=== PATIENT | female | born 1995 | race Native Hawaiian/Other Pacific Islander ===

== ENCOUNTER 2017-02-20 17:58 | Emergency (ER) | payer SELFPAY ==
[2017-02-20 18:47] VITALS: BP 125/85
[2017-02-20 19:34] LABS: Basophils % (Auto) 0.1 % (0.0-1.8); Eosinophils % (Auto) 0.2 % (0.0-4.3); Hematocrit 38.9 % (30.3-42.9); Hemoglobin 13.3 gm/dl (10.1-14.3); Mean Corpuscular HGB Conc 34 % (30-34); Mean Corpuscular Hemoglobin 33 pg (28-32); Mean Corpuscular Volume 95 fl (79-97); Platelet Count 305 K/mm3 (140-440); Red Blood Count 4.08 M/mm3 (3.65-5.03); White Blood Count 11.1 K/mm3 (4.5-11.0)
[2017-02-20 19:45] LABS: Amylase 278 units/L (27-131); Lipase 54 units/L (13-60)
[2017-02-20 19:49] LABS: Alanine Aminotransferase 22 units/L (7-56); Albumin 4.4 g/dL (3.9-5); Alkaline Phosphatase 64 units/L (35-129); Anion Gap 21 mmol/L; Blood Urea Nitrogen 9 mg/dL (7-17); Calcium 10.2 mg/dL (8.4-10.2); Carbon Dioxide 27 mmol/L (22-30); Glucose 95 mg/dL (65-100); Potassium 4.6 mmol/L (3.6-5.0); Sodium 138 mmol/L (137-145); Total Protein 8.6 g/dL (6.3-8.2)
[2017-02-20 20:05] LABS: Bilirubin,Direct < 0.2 mg/dL (0-0.2); Bilirubin,Indirect 0.4 mg/dL
[2017-02-20 21:49] LABS: Bacteria,Urine 4+ /HPF (Negative); Bilirubin,Urine NEG (Negative); Blood,Urine NEG (Negative); Ketones,Urine 80 mg/dL (Negative); Leukocyte Esterase,Urine SM (Negative); Mucus,Urine 3+ /HPF; Nitrite,Urine NEG (Negative)
--- NOTE | 2017-02-20 22:25 | Ultrasound Report ---
FINAL REPORT PROCEDURE: US OB \T\lt; = 14 WEEKS FETUS TECHNIQUE: Real-time transabdominal sonography of the uterus, placenta, amniotic fluid, adnexa, and fetus was performed with image documentation. Measurements were obtained to determine age/size. M-mode Doppler was used to document heartbeat. CPT 81306 HISTORY: w/ abd pain COMPARISON: No prior studies are available for comparison. FINDINGS: CRL: 2.6 mm, which corresponds to a gestational age of: 9 weeks weeks, 3 days. Embryonic Cardiac Activity: 143 Gestational Sac: Normal. Amniotic fluid: Normal. Cervix: Normal. Right Ovary: It measures 2.9 x 1.6 x 2.5 centimeters with normal appearance Left Ovary: Measures 2.3 x 1.7 x 1.3 centimeters with normal appearance Estimated delivery date: 09/22/2017 Uterus and adnexa: Normal. IMPRESSION: Single live intrauterine gestation at approximately 9 weeks and 3 days. EDC by US 09/22/2017
--- NOTE | 2017-02-20 22:26 | Ultrasound Report ---
FINAL REPORT PROCEDURE: US OB TRANSVAGINAL TECHNIQUE: Real-time transvaginal sonography of the uterus, placenta, amniotic fluid, adnexa, and fetus was performed with image documentation. Measurements were obtained to determine age/size. M-mode Doppler was used to document heartbeat. CPT 25716 HISTORY: w/ abd pain COMPARISON: No prior studies are available for comparison. FINDINGS: CRL: 26mm, which corresponds to a gestational age of: 9weeks, 3 days. Yolk Sac: Normal. Embryonic Cardiac Activity: 181 Gestational Sac: Normal. Right Ovary: Normal. Left Ovary: Normal. Estimated delivery date: 09/22/2017 Comment: Complete anatomic survey at 18-20 weeks suggested. IMPRESSION: 1. Single living intrauterine gestation at approximately 9 weeks and 3 days 2. EDC by US 09/22/2017.
== END 2017-02-21 00:10 | disposition left against medical advice (07) ==
LOC: ED 17:58
DX: O26.891 Other specified pregnancy related conditions, first trimester (principal); E86.0 Dehydration; R11.0 Nausea; Z3A.09 9 weeks gestation of pregnancy; Z53.21 Procedure and treatment not carried out due to patient leaving prior to being seen by health care provider
CPT/HCPCS: 36415; 76801; 76817; 80048; 80074; 81001; 82150; 82805; 83690; 84702; 85025; 86850; 86900; 86901; 87076; 87086; 87186

== ENCOUNTER 2017-09-26 05:22 | Inpatient (IN) | payer MEDICAID ==
[2017-09-26] MEDS ORDERED: ePHEDrine SULFATE IV PRN (06:18)
[2017-09-26] MEDS ORDERED: MINERAL OIL PO PRN (06:18)
[2017-09-26] MEDS ORDERED: BRETHINE SUB-Q PRN (06:18)
[2017-09-26] MEDS ORDERED: XYLOCAINE 2% INFILTRATI ONE ×2 (06:18→06:55)
[2017-09-26] MEDS ORDERED: BRETHINE IVP PRN (06:18)
[2017-09-26] MEDS ORDERED: SUBLIMAZE IV PRN ×2 (06:18→07:22)
--- NOTE | 2017-09-26 06:54 | History and Physical Report ---
History of Present Illness Date of examination: 09/26/17 Chief complaint: Painful contractions History of present illness: 22 y/o at 40+6 wks with painful contractions, she is a [facility] patient. 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 denies: smoking, alcohol abuse, prescription drug abuse, IV drug use - Obstetrical History Expected Date of Delivery: 09/20/17 Actual Gestation: 40 Week(s) 6 Day(s) : 2 Para: 1 Medications and Allergies Allergies Allergy/AdvReac Type Severity Reaction Status Date / Time No Known Allergies Allergy Unverified 02/20/17 18:46 Active Meds: Active Medications Ephedrine Sulfate (Ephedrine Sulfate) 10 mg IV Q2M PRN PRN Reason: Hypotension Fentanyl (Sublimaze) 100 mcg IV Q2H PRN PRN Reason: Labor Pain Lactated Ringer's (Lactated Ringers) 1,000 mls @ 125 mls/hr IV DIRECT LEOPOLDO Oxytocin/Sodium Chloride (Pitocin/Ns 20 Unit/1000ml Drip) 20 units in 1,000 mls @ 125 mls/hr IV DIRECT LEOPOLDO Mineral Oil (Mineral Oil) 30 ml PO QHS PRN PRN Reason: Constipation Terbutaline Sulfate (Brethine) 0.25 mg SUB-Q ONCE PRN PRN Reason: Hyperstimulation/Hypertonicity Terbutaline Sulfate (Brethine) 0.25 mg IVP ONCE PRN PRN Reason: Hyperstimulation/Hypertonicity Review of Systems Constitutional: no fever, no chills, no weakness, no lethargy Cardiovascular: no chest pain, no orthopnea, no lightheadedness, no shortness of breath, no dyspnea on exertion, no high blood pressure Respiratory: no cough, no cough with sputum, no shortness of breath, no dyspnea on exertion Gastrointestinal: no abdominal pain, no nausea, no vomiting Genitourinary: contractions, no vaginal bleeding, no vaginal discharge, no leakage of fluid - Vital Signs Vital signs: Vital Signs Temp 99.0 F 09/26/17 05:46 Temp Pulse Resp BP Pulse Ox 99.0 F 109 H 118/75 98 09/26/17 05:46 09/26/17 06:48 09/26/17 06:48 09/26/17 06:27 - Physical Exam Cardiovascular: Regular rate, Normal S1, Normal S2 Lungs: Positive: Clear to auscultation Abdomen: Positive: normal appearance, soft. Negative: distention, tenderness, guarding, rigidity Genitourinary (Female): Positive: normal external genitalia Vulva: both: normal Uterus: Positive: enlarged (EFW ~ 3400) Adnexa: both: normal Extremities: Positive: normal - Obstetrical FHR: category 1 Cervical Dilatation: 4 station: -3 Results All other labs normal. Assessment and Plan A: 22 y/o at 40+6 wks in active labour -cat 1 tracing P: -Admit -Routine labs -Expectant mgt - Patient Problems (1) 40 weeks gestation of Current Visit: Yes Status: Acute (2) Active labor at term Current Visit: Yes Status: Acute
[2017-09-26] MEDS ORDERED: ZOFRAN IV PRN ×2 (06:55→08:43)
[2017-09-26] MEDS ORDERED: PHENERGAN PO PRN ×2 (06:55→08:43)
[2017-09-26] MEDS ORDERED: PITOCin/NS 30 UNIT/500ML 30 UNITS/500 ML BAG IV SCH ×2 (07:00)
[2017-09-26] MEDS ORDERED: LACTATED RINGERS 1,000 ML IV SCH ×2 (07:00)
[2017-09-26] MEDS: PITOCin/NS 20 UNIT/1000ML DRIP 20 UNITS/1,000 ML BAG IV SCH ×2 (08:21→10:38)
[2017-09-26] MEDS ORDERED: METHERGINE IM ONE (08:22)
--- NOTE | 2017-09-26 08:42 | Procedure Note ---
OB Delivery Note - Delivery Date of Delivery: 09/26/17 Surgeon: GIOVANI ABDALLA Estimated blood loss: 300cc - Vaginal Delivery presentation: vertex Delivery position: OA Intrapartum events: meconium, foul smelling fluid Delivery induction: none Delivery monitor: external FHT, external uterine Route of delivery: Delivery placenta: spontaneous Delivery cord: nuchal cord (Tight and cut on perineum), 3 umbilical vessels Delivery laceration: 2nd degree, vaginal side wall (Sulcus tear with bleeding) Delivery repair: vicryl Anesthesia: local - Infant A at 1 minute: 8 at 5 minutes: 9 Infant Gender: Female ( was 8:18, weight was 6 pounds 15 ounces or 3148 g)
[2017-09-26] MEDS ORDERED: METHERGINE IM PRN (08:43)
[2017-09-26] MEDS ORDERED: DULCOLAX PR PRN (08:43)
[2017-09-26] MEDS ORDERED: BENADRYL PO PRN (08:43)
[2017-09-26] MEDS ORDERED: MILK OF MAGNESIA PO PRN (08:43)
[2017-09-26] MEDS ORDERED: TYLENOL PO PRN (08:43)
[2017-09-26] MEDS ORDERED: TUCKS PAD TP PRN (08:43)
[2017-09-26] MEDS ORDERED: NORCO 5/325 PO PRN (08:43)
[2017-09-26] MEDS ORDERED: PHENERGAN PR PRN (08:43)
[2017-09-26] MEDS ORDERED: LANSINOH TP PRN (08:43)
[2017-09-26] MEDS ORDERED: SODIUM CHLORIDE FLUSH SYRINGE 10 ML IV NR (09:00)
[2017-09-26 09:45] LABS: Hematocrit 30.2 % (30.3-42.9); Hemoglobin 10.1 gm/dl (10.1-14.3); Mean Corpuscular HGB Conc 33 % (30-34); Mean Corpuscular Hemoglobin 32 pg (28-32); Mean Corpuscular Volume 97 fl (79-97); Platelet Count 207 K/mm3 (140-440); Red Blood Count 3.13 M/mm3 (3.65-5.03); Red Cell Distribution Width 14.8 % (13.2-15.2)
[2017-09-26] MEDS: PRENATAL VITAMIN PO SCH (10:33)
[2017-09-26] MEDS: MOTRIN PO SCH ×2 (12:27→17:55)
[2017-09-26 21:44] LABS: Hematocrit 24.6 % (30.3-42.9); Hemoglobin 8.1 gm/dl (10.1-14.3)
[2017-09-27] MEDS: MOTRIN PO SCH ×4 (01:09→18:15)
[2017-09-27] MEDS: SENOKOT S PO SCH ×3 (01:10→09:41)
[2017-09-27] MEDS: FEOSOL PO SCH ×2 (01:11→09:40)
[2017-09-27] MEDS: COLACE PO SCH ×2 (01:12→09:40)
[2017-09-27] MEDS ORDERED: M-M-R II VACCINE SUB-Q ONE (08:43)
[2017-09-27] MEDS: PRENATAL VITAMIN PO SCH (09:40)
--- NOTE | 2017-09-27 15:16 | Progress Note ---
Assessment and Plan A: Day 1, Stable Desires Depo-Provera for contraception P: Routine care Administer Depo-Provera prior to discharge Plan to discharge today Subjective - Subjective Date of service: 09/27/17 Principal diagnosis: Day 1 Patient reports: appetite normal, voiding normally, pain well controlled, ambulating normally : doing well, nursing well Objective - Vital Signs Latest vital signs: Vital Signs Temp Pulse Resp BP Pulse Ox 09/27/17 10:00 18 09/27/17 08:02 98.3 F 82 18 96/35 97 09/27/17 01:20 98.4 F 91 H 18 105/57 97 09/27/17 01:09 18 09/26/17 20:45 98.5 F 103 H 18 102/54 96 09/26/17 17:30 98.7 F 78 20 102/64 98 Intake and Output 09/26/17 09/27/17 09/27/17 23:59 07:59 15:59 Intake Total 240 360 120 Output Total 600 Balance -360 360 120 Intake: Oral 240 360 120 Output: Urine 600 Void 600 Other: Total, Intake Amount 240 120 120 Total, Output Amount 600 # Voids Void 1 1 - Exam Breasts: Present: normal Cardiovascular: Present: Regular rate Lungs: Present: Clear to auscultation Abdomen: Present: normal appearance, soft Vulva: both: normal Uterus: Present: normal, fundal height below umbilicus Extremities: Present: normal Deep Tendon Reflex Grade: Normal +2 - Labs Labs: Abnormal lab results 09/26/17 Range/Units 21:21 Hgb 8.1 L (10.1-14.3) gm/dl Hct 24.6 L (30.3-42.9) %
[2017-09-27] MEDS ORDERED: DEPO-PROVERA (CONTRACEPTION) IM ONE ×2 (15:19→23:00)
--- NOTE | 2017-09-27 15:23 | Discharge Summary ---
Providers - Providers Date of Admission: 09/26/17 06:52 Date of discharge: 09/27/17 Attending physician: ELIUD MASSEY MD Primary care physician: ELIUD MASSEY MD Hospitalization Reason for admission: active labor, IUP at term Delivery: Procedure details: see delivery note Episiotomy: none Laceration: vaginal side wall (sulcus), 2nd degree Other procedures: none complications: none Discharge diagnosis: IUP at term delivered baby: female Condition at discharge: Good Disposition: DC-01 TO HOME OR SELFCARE Plan - Discharge Medications Prescriptions: Ibuprofen [Motrin 600 MG tab] 600 mg PO Q8H PRN #30 tablet PRN Reason: Pain Multivitamin with Iron [Multivitamins with Iron] 1 each PO DAILY #30 tablet - Provider Discharge Summary Activity: routine, no sex for 6 weeks, no heavy lifting 4 weeks, no strenuous exercise Diet: routine Instructions: routine Additional instructions: [] Smoking cessation referral if applicable(refer to patient education folder for contact #) [] Refer to [facility] Call your doctor immediately for: * Fever > 100.5 * Heavy vaginal bleeding ( >1 pad per hour) * Severe persistent headache * Shortness of breath * Reddened, hot, painful area to leg or breast * Drainage or odor from incision. * Keep incision clean and dry at all times and follow doctor's instructions regarding bathing/showering - Follow up plan Follow up: NEYMAR HEBERT CNM [Advanced Practice Nurse] - 6 Weeks
[2017-09-28 00:16] VITALS: BP 116/67
== END 2017-09-27 23:55 | disposition home or self-care (01) | DRG 775 ==
LOC: TRG 05:22 → LD 06:52 → OB 11:57
PROVIDERS: ADMIT Obstetrics & Gynecology; ATTEND Obstetrics & Gynecology
PROC: 10E0XZZ Delivery of Products of Conception, External Approach (ICD-10-PCS; principal; 2017-09-26)
PROC: 0KQM0ZZ Repair Perineum Muscle, Open Approach (ICD-10-PCS; 2017-09-26)
PROC: 3E0234Z Introduction of Serum, Toxoid and Vaccine into Muscle, Percutaneous Approach (ICD-10-PCS; 2017-09-27)
DX: O77.0 Labor and delivery complicated by meconium in amniotic fluid (principal); O69.81X0 Labor and delivery complicated by cord around neck, without compression, not applicable or unspecified; Z37.0 Single live birth; Z3A.40 40 weeks gestation of pregnancy; Z79.899 Other long term (current) drug therapy; Z23 Encounter for immunization; O70.1 Second degree perineal laceration during delivery
CPT/HCPCS: 36415; 85014; 85018; 85027; 86592; 86850; 86900; 86901; A6250; J1050; J2210; J2590; J3010; J7120; Q0169

== ENCOUNTER 2022-03-18 15:06 | Inpatient (IN) | payer MEDICAID ==
[2022-03-18] MEDS ORDERED: MAGNESIUM SULFATE 4 GM/100 ML BAG IV NR (16:24)
--- NOTE | 2022-03-18 16:41 | History and Physical Report ---
History of Present Illness Date of examination: 03/18/22 Date of admission: 03/18/22 15:07 History of present illness: at 35.4 wks by LMP per pt report. care at [facility]. Pt states that she has a headache for the past 3days for which she has been taking tylenol med which was not effective. Pt admits to movement, denies LOF or vag bleed. Pt denies ctx. Pt desires no future fertility. labs with O positive, neg screen, rubella immune, VDRL non-reactive, HepBsAg neg, HIV negative, 1hrgtt wnl. Past History Past Medical History: no pertinent history Past Surgical History: no surgical history Social history: no significant social history - Obstetrical History Expected Date of Delivery: 04/18/22 Actual Gestation: 35 Week(s) 4 Day(s) : 3 Hx # Term Pregnancies: 2 Number of Living Children: 2 Medications and Allergies Allergies Allergy/AdvReac Type Severity Reaction Status Date / Time No Known Allergies Allergy Unverified 02/20/17 18:46 Home Medications Medication Instructions Recorded Confirmed Last Taken Type Ibuprofen [Motrin 600 MG tab] 600 mg PO Q8H PRN #30 tablet 09/26/17 Unknown Rx Multivitamin with Iron 1 each PO DAILY #30 tablet 09/26/17 Unknown Rx [Multivitamins with Iron] Active Meds: Active Medications Calcium Gluconate (Calcium Gluconate 1000 Mg/10 Ml Inj) 1,000 mg IV ONCE ONE Stop: 03/18/22 16:25 Hydralazine HCl (Hydralazine 20 Mg/1 Ml Inj) 5 mg IV Q30MIN PRN PRN Reason: Hypertension Lactated Ringer's (Lactated Ringers) 1,000 mls @ 125 mls/hr IV DIRECT LEOPOLDO Magnesium Sulfate (Magnesium Sulfate 4gm/100ml) 4 gm in 100 mls @ 300 mls/hr IV ONCE ONE Stop: 03/18/22 16:43 Magnesium Sulfate (Magnesium Sulfate 40gm/1000ml) 40 gm in 1,000 mls @ 50 mls/hr IV DIRECT LEOPOLDO Labetalol HCl (Labetalol 20 Mg/4 Ml Inj) 20 mg IV ONCE ONE Stop: 03/18/22 16:25 Review of Systems All systems: negative (headache) - Vital Signs Vital signs: Vital Signs Pulse BP 48 L 176/86 03/18/22 15:48 03/18/22 15:48 Temp Pulse Resp BP Pulse Ox 54 L 163/80 99 03/18/22 16:25 03/18/22 16:22 03/18/22 16:25 - Physical Exam Breasts: Positive: deferred Cardiovascular: Normal S1 Abdomen: Positive: soft Genitourinary (Female): Positive: normal external genitalia Vagina: Positive: normal moisture Uterus: Positive: enlarged (non-tender gravid) - Obstetrical FHR: category 1 Uterine Contraction Monitor Mode: External Uterine Contraction Pattern: Absent Results Result Diagrams: 03/18/22 18:20 All other labs normal. Assessment and Plan Gestational HTN, preeclampsia with severe feature of headache 1. Admit to labor and delivery, PIH work up with 24hr prot/creat clearance, IV labetalol/hydrallazine per protocol as needed; Mag sulfate for seizure prophylaxis 2. Betamethasone for late 3. Consult APA 4. U/S for Gest age, BPP, placental integrity, MINNIE 5. Tylenol prn headache Plan of care discussed with pt.
[2022-03-18] MEDS ORDERED: CARBOPROST TROMETHAMINE 250 MCG/1 ML INJ IM NR (16:44)
[2022-03-18] MEDS ORDERED: OXYTOCIN 10 UNIT/1 ML INJ IM NR (16:44)
[2022-03-18] MEDS ORDERED: LOPERAMIDE 2 MG CAP PO NR (16:44)
[2022-03-18] MEDS ORDERED: LIDOCAINE (2%) 20 MG/1 ML VIAL 20 ML MDV INFILTRATI NR (16:44)
[2022-03-18] MEDS ORDERED: miSOPROStol 200 MCG TAB PR NR (16:44)
[2022-03-18] MEDS ORDERED: hydrALAZINE 20 MG/1 ML INJ IV PRN (17:00)
[2022-03-18] MEDS ORDERED: CALCIUM GLUCONATE 1000 MG/10 ML INJ IV NR (17:00)
[2022-03-18] MEDS ORDERED: LACTATED RINGERS 1,000 ML IV SCH ×2 (17:30→18:00)
[2022-03-18] MEDS ORDERED: fentaNYL 100 MCG/2 ML INJ IV PRN (17:30)
[2022-03-18] MEDS ORDERED: ePHEDrine SULFATE 50 MG/1 ML INJ IV PRN (17:30)
[2022-03-18] MEDS ORDERED: BETAMET ACET/BETAMET NA PH 6 MG/ML INJ 5 ML MDV IM ONE (17:38)
[2022-03-18] MEDS ORDERED: BETAMET ACET/BETAMET NA PH 6 MG/ML INJ 5 ML MDV IM SCH (17:45)
[2022-03-18] MEDS ORDERED: OXYTOCIN DRIP 30 UNITS/500 ML BAG IV SCH (18:00)
[2022-03-18] MEDS ORDERED: TERBUTALINE 1 MG/1 ML INJ SUB-Q PRN (18:00)
[2022-03-18] MEDS ORDERED: NalbUPHINE 10 MG/1 ML INJ IV PRN (18:00)
[2022-03-18] MEDS ORDERED: ONDANSETRON 4 MG/2 ML INJ IV PRN (18:00)
[2022-03-18] MEDS ORDERED: PROMETHAZINE 25 MG TAB PO PRN (18:00)
[2022-03-18 19:08] LABS: Hematocrit 34.8 % (30.3-42.9); Hemoglobin 11.3 gm/dl (10.1-14.3); Mean Corpuscular HGB Conc 32 % (30-34); Mean Corpuscular Volume 98 fl (79-97); Platelet Count 214 K/mm3 (140-440); Red Blood Count 3.57 M/mm3 (3.65-5.03); Red Cell Distribution Width 14.6 % (13.2-15.2)
[2022-03-18 19:19] LABS: INR 0.92 (0.87-1.13); Partial Thromboplastin Time 29.1 Sec. (24.2-36.6)
[2022-03-18 19:22] LABS: Alanine Aminotransferase 39 units/L (7-56); Albumin 2.9 g/dL (3.9-5); BUN/Creatinine Ratio 19; Blood Urea Nitrogen 15 mg/dL (7-17); Calcium 8.8 mg/dL (8.4-10.2); Hemolysis Index 2; Uric Acid 6.9 mg/dL (3.5-7.6)
[2022-03-18 19:50] LABS: Bilirubin,Direct < 0.2 mg/dL (0-0.2)
[2022-03-18] MEDS: ACETAMINOPHEN 325 MG TAB PO PRN (19:57)
--- NOTE | 2022-03-18 20:00 | Ultrasound Report ---
ULTRASOUND BIOPHYSICAL PROFILE INDICATION: BPP/MINNIE. COMPARISON: None available. FINDINGS: breathing movement = 2 Gross body movement = 2 tone = 2 Qualitative amniotic fluid volume = 2 Total biophysical score = 03/10 Amniotic fluid index is 11.2 cm. Presentation is Cephalic. heart rate is 151 beats per minute. Biparietal diameter 8.6 cm, 34 weeks 4 days Head circumference 30.9 cm, 34 weeks 4 days Abdominal circumference 29.7 cm, 33 weeks 5 days Femur length 6.6 cm, 23 weeks 6 days Estimated weight is 2309 g. There is a grade 2 anterior placenta. IMPRESSION: biophysical profile = 03/10 Additional findings as above. Signer Name: Wade Cedeno MD Signed: 03/18/2022 7:55 PM Workstation Name: [id number]
[2022-03-18] MEDS ORDERED: MINERAL OIL 30 ML ORAL LIQD PO PRN (22:00)
[2022-03-19 00:24] LABS: Color,Urine Yellow (Yellow)
[2022-03-19 00:26] LABS: Bacteria,Urine 2+ /HPF (Negative); Mucus,Urine 3+ /HPF
[2022-03-19] MEDS ORDERED: PENICILLIN G POTASSIUM 5 MIL.UNITS in SODIUM CHLORIDE 0.9% 50 ML IV ONE (01:09)
--- NOTE | 2022-03-19 01:50 | Event Note ---
Date: 03/19/22 CC: HD #2 management of preeclampsia with severe features HPI: 26-year-old at 35-5/7 weeks gestation is admitted to the antepartum unit for management of preeclampsia with severe features. The patient has no history of prepregnancy hypertension. Today, blood pressures were >140/90 and she had a headache for the past 3 days. Headache improved after Tylenol today, but have returned 1 hour ago. The patient received IV hydralazine after blood pressures were >160/110 (at least 5 occasions) a few hours ago. Intravenous magnesium was also ordered for seizure prophylaxis. Blood pressure was >160/110 again a few minutes ago and labetalol 20 mg IV push was ordered per ACOG Hypert ension safety bundle. 24 urine protein collection is pending. UPCR is pending also as are laboratory informed me that the chemistry analyzer malfunction of the fishing tackle repairer is scheduled to arrive during the morning shift. However, spot urinalysis revealed 4+ protein. Clinically, I am highly suspicious for preeclampsia with severe features based on elevated blood pressures >160/110 on several occasions, headache that recurred after Tylenol, and 4+ protein on spot urinalysis. As such, induction of labor is medically indicated at this gestational age secondary to preeclampsia with severe features according to ACOG Committee Opinion 831. There is no vaginal bleeding. There is no leaking of fluid. There is good movement. There are occasional contractions. O: EFM= category 1 TOCO= occasional SVE= 1-2/60%/-3. Medium. Mid. Patient score is 5. Cook's catheter inserted transcervically, 80 mL NS inserted into cervical balloon, and placed to traction with 1 L bag of LR. LABS: Preeclampsia labs= reviewed UPCR= pending (laboratory informing that chemistry analyzer malfunction and fishing tackle repairer scheduled for the morning shift) UA= 4+ protein 24 hour urine protein collection= pending GBS culture= pending UCx= pending RADIOLOGY: OB Ultrasound Limited= SLIUP. Vertex. Anterior placenta. EFW= 2309 g (12th %- ile). MINNIE= 11.2 cm. BPP= 8/8 IMPRESSION: 1.) 35 weeks 2.) Preeclampsia with severe features PLAN: 1.) care is up-to-date at [facility]. 2.) Administer penicillin per protocol for intrapartum GBS prophylaxis per 2009 CDC MMWR guidelines. GBS cultures pending. 3.) In lieu of the preeclampsia with severe features, induction of labor is medically indicated at this gestational age. Cook's catheter inserted. Administer Cytotec 50 mcg p.o. every 4 hours. 4.) Continue IV labetalol if blood pressures >160/110 per ACOG Hypertension safety bundle. 5.) Magnesium in active labor. 6.) Maternal- medicine was already consulted.
[2022-03-19] MEDS ORDERED: miSOPROStol 25 MCG TAB PO SCH ×2 (02:00)
[2022-03-19] MEDS: ACETAMINOPHEN 325 MG TAB PO PRN (02:00)
[2022-03-19] MEDS ORDERED: hydrALAZINE 20 MG/1 ML INJ IV ONE (05:40)
[2022-03-19] MEDS ORDERED: PENICILLIN G POTASSIUM 2.5 MIL.UNITS in SODIUM CHLORIDE 0.9% 50 ML IV SCH (06:00)
[2022-03-19] MEDS ORDERED: SODIUM CHLORIDE 0.9% 1000 ML 1,000 ML VG SCH ×2 (07:30)
--- NOTE | 2022-03-19 07:35 | Event Note ---
Date: 03/19/22 CC: HD #2 management of preeclampsia with severe features HPI: 26-year-old at 35-5/7 weeks gestation is admitted to the antepartum unit for management of preeclampsia with severe features. The patient has no history of prepregnancy hypertension. Today, blood pressures were >140/90 and she had a headache for the past 3 days. Headache improved after Tylenol today, but have returned 1 hour ago. The patient received IV hydralazine after blood pressures were >160/110 (at least 5 occasions) a few hours ago. Intravenous magnesium was also ordered for seizure prophylaxis. Blood pressure was >160/110 again a few minutes ago and labetalol 20 mg IV push was ordered per ACOG Hypert ension safety bundle. 24 urine protein collection is pending. UPCR is pending also as are laboratory informed me that the chemistry analyzer malfunction of the machine veneer repairer is scheduled to arrive during the morning shift. However, spot urinalysis revealed 4+ protein. So far, labetalol IV 20 mg/40 mg/80 mg and hydralazine IV 10 mg/10 mg have been administered to keep blood pressure <160/110. Clinically, I am highly suspicious for preeclampsia with severe features based on elevated blood pressures >160/110 on several occasions, headache that recurred after Tylenol, and 4+ protein on spot urinalysis. As such, induction of labor is medically indicated at this gestational age secondary to preeclampsia with severe features according to ACOG Committee Opinion 831. There is no vaginal bleeding. There is no leaking of fluid. There is good movement. There are occasional contractions. O: EFM= category 2. Variable decelerations. TOCO= q 2-5 minutes SVE= 5/60%/-3. Soft. Mid. Hahn score is 8. Cook's catheter fell out. AROM'ed. Meconium noted. IUPC and FSE placed. Amnioinfusion ordered. LABS: Preeclampsia labs= reviewed UPCR= pending (laboratory informing that chemistry analyzer malfunction and machine veneer repairer scheduled for the morning shift) UA= 4+ protein 24 hour urine protein collection= pending GBS culture= pending UCx= pending RADIOLOGY: OB Ultrasound Limited= SLIUP. Vertex. Anterior placenta. EFW= 2309 g (12th %-ile). MINNIE= 11.2 cm. BPP= 8/8 IMPRESSION: 1.) 35 weeks 2.) Preeclampsia with severe features 3.) Meconium 4.) Variable decelerations PLAN: 1.) care is up-to-date at [facility]. 2.) Administering penicillin per protocol for intrapartum GBS prophylaxis per 2010 CDC MMWR guidelines. GBS cultures pending. 3.) In lieu of the preeclampsia with severe features, induction of labor is medically indicated at this gestational age. 4.) Cervix is not favorable. Start Pitocin per protocol. 5.) Continue IV labetalol if blood pressures >160/110 per ACOG Hypertension safety bundle. 6.) Magnesium in active labor. 7.) Maternal- medicine was already consulted. 8.) Amnioinfusion ordered. 9.) Epidural as needed.
[2022-03-19] MEDS ORDERED: MAGNESIUM SULFATE 4 GM/100 ML BAG IV ONE (08:00)
[2022-03-19 08:30] LABS: Creatinine,Urine 340.3 mg/dL (0.1-20.0)
[2022-03-19] MEDS: MAGNESIUM SULFATE 40GM/1000ML 40 GM/1,000 ML BAG IV SCH (08:50)
[2022-03-19] MEDS ORDERED: LIDOCAINE (2%) 20 MG/1 ML VIAL 20 ML MDV INFILTRATI ONE (09:26)
[2022-03-19] MEDS ORDERED: LIDOCAINE (2%) 20 MG/1 ML VIAL 50 ML MDV INFILTRATI NR (09:30)
[2022-03-19] MEDS ORDERED: miSOPROStol 200 MCG TAB ONE ×2 (09:47→09:51)
--- NOTE | 2022-03-19 10:23 | Procedure Note ---
OB Delivery Note - Delivery Date of Delivery: 03/19/22 Surgeon: MICHAEL VILLALBA Estimated blood loss: other (793cc by QBL however the nurse states amniotic fluid mixed in) - Vaginal Delivery presentation: vertex Delivery position: OP Intrapartum events: labor-<37 weeks, preeclampsia, decreased FHT variability, mult. late decelerations, mult.variable deceleratio, uterine atony Delivery induction: oxytocin Delivery monitor: external FHT, external uterine, internal uterine Route of delivery: Delivery placenta: spontaneous Delivery cord: 3 umbilical vessels Episiotomy: none Delivery laceration: 1st degree (to left periurethra), 2nd degree (to right perineum) Delivery repair: chromic Anesthesia: local Delivery comments: Pt checked less than 15mins and noted to be loose 6cm and 90% and -3 station and ballotable. Discussed alternative mode of delivery with non-reassuring FHR. FOB rushed to the desk after I left the room stating pt has urge to push. Pt re-evaluated and head was at +3 station. NICU notified and moody cath removed. SAVD of viable male infant in persistent O-P presentation and no nuc nile cord present. Sustained 2nd degree perineal laceration and same repaired with 2-0 chromic running locked suture and 1st degree to left periurethra and same repaired with interrupted 2-0 chromic suture x1. Lidocaine 2% used for pain relief. Placenta delivered complete with 3vessel cord and cervix visualized and no lacerations seen. Mag sulfate turned off during delivery. Bimanual exam done and uterine atony treated with pitocin and cytotec 800mcg per rectum. Will restart mag sulfate in 1hr with bleeding stable. APGARS 8/9; wt 2140g with meconium stained fluid. Mom and baby stable with FOB to bedside. - A at 1 minute: 8 at 5 minutes: 9 Gender: Male (wt 2140g; meconium stained fluid, slightly bloody also)
[2022-03-19] MEDS ORDERED: miSOPROStol 100 MCG TAB PR PRN (10:44)
[2022-03-19] MEDS ORDERED: BENZOCAINE/MENTHOL 20/0.5% TOP SPRAY 56 GM TP PRN (11:30)
[2022-03-19] MEDS ORDERED: diphenhydrAMINE 25 MG CAP PO PRN (11:30)
[2022-03-19] MEDS ORDERED: WITCH HAZEL/ GLYCERIN PAD TP PRN (12:00)
[2022-03-19] MEDS ORDERED: PROMETHAZINE 25 MG TAB PO PRN (12:00)
[2022-03-19] MEDS ORDERED: HYDROCORTISONE 25 MG RECTAL SUPP PR PRN (12:00)
[2022-03-19] MEDS ORDERED: PROMETHAZINE 25 MG RECT SUPP PR PRN (12:00)
[2022-03-19] MEDS ORDERED: miSOPROStol 200 MCG TAB PR NR ×2 (12:00)
[2022-03-19] MEDS ORDERED: LANOLIN/ZINC/DIMETHICONE (LANSINOH) 7 GM TP PRN (12:00)
[2022-03-19] MEDS ORDERED: IBUPROFEN 800 MG TAB PO SCH (12:00)
[2022-03-19] MEDS ORDERED: ONDANSETRON 4 MG/2 ML INJ IV PRN (12:00)
[2022-03-19] MEDS ORDERED: oxyCODONE /ACETAMINOPHEN 5-325MG TAB PO PRN (12:00)
[2022-03-19] MEDS ORDERED: MAGNESIUM HYDROXIDE (MOM) ORAL LIQD UDC PO PRN (22:00)
[2022-03-20] MEDS: MAGNESIUM SULFATE 40GM/1000ML 40 GM/1,000 ML BAG IV SCH (07:41)
[2022-03-20 09:12] LABS: Hematocrit 29.4 % (30.3-42.9); Hemoglobin 9.6 gm/dl (10.1-14.3); Mean Corpuscular HGB Conc 33 % (30-34); Mean Corpuscular Volume 98 fl (79-97); Platelet Count 217 K/mm3 (140-440); Red Blood Count 3.01 M/mm3 (3.65-5.03); Red Cell Distribution Width 15.1 % (13.2-15.2)
[2022-03-20] MEDS ORDERED: PRENATAL VIT27-FE FUMARATE-FOLIC ACID VIT TAB PO SCH (10:00)
--- NOTE | 2022-03-20 19:10 | Progress Note ---
Assessment and Plan S/p PPD #1 Preeclampsia Pt. stable Preeclampsia improved - BP - wnl Continue PP care Subjective Date of service: 03/20/22 Principal diagnosis: S/p , Pre-eclampsia Interval history: Pt. denies headache, blurry vision or epigastric pain. No SOB. Moderate lochia. Good pain control Objective - Constitutional Vitals: Vital Signs - 12hr 03/20/22 03/20/22 03/20/22 07:07 07:11 07:12 Temperature Pulse Rate 69 76 71 Respiratory Rate Blood Pressure Blood Pressure [Left] O2 Sat by Pulse 100 94 95 Oximetry O2 Sat by Pulse Oximetry [ Bilateral Throughout] 03/20/22 03/20/22 03/20/22 07:17 07:18 07:22 Temperature Pulse Rate 70 73 90 Respiratory Rate Blood Pressure Blood Pressure [Left] O2 Sat by Pulse 98 93 96 Oximetry O2 Sat by Pulse Oximetry [ Bilateral Throughout] 03/20/22 03/20/22 03/20/22 07:25 07:27 07:32 Temperature Pulse Rate 68 69 71 Respiratory Rate Blood Pressure Blood Pressure [Left] O2 Sat by Pulse 94 98 86 Oximetry O2 Sat by Pulse Oximetry [ Bilateral Throughout] 03/20/22 03/20/22 03/20/22 07:37 07:39 07:42 Temperature Pulse Rate 66 80 76 Respiratory Rate Blood Pressure Blood Pressure [Left] O2 Sat by Pulse 98 85 92 Oximetry O2 Sat by Pulse Oximetry [ Bilateral Throughout] 03/20/22 03/20/22 03/20/22 07:44 07:47 07:52 Temperature Pulse Rate 66 64 70 Respiratory Rate Blood Pressure 137/79 Blood Pressure [Left] O2 Sat by Pulse 99 100 Oximetry O2 Sat by Pulse Oximetry [ Bilateral Throughout] 03/20/22 03/20/22 03/20/22 07:57 08:00 08:02 Temperature Pulse Rate 75 71 Respiratory Rate Blood Pressure Blood Pressure [Left] O2 Sat by Pulse 99 98 Oximetry O2 Sat by Pulse 97 Oximetry [ Bilateral Throughout] 03/20/22 03/20/22 03/20/22 08:07 08:11 08:12 Temperature Pulse Rate 65 64 67 Respiratory Rate Blood Pressure Blood Pressure [Left] O2 Sat by Pulse 99 79 L 97 Oximetry O2 Sat by Pulse Oximetry [ Bilateral Throughout] 03/20/22 03/20/22 03/20/22 08:17 08:22 08:27 Temperature Pulse Rate 72 69 82 Respiratory Rate Blood Pressure Blood Pressure [Left] O2 Sat by Pulse 99 99 99 Oximetry O2 Sat by Pulse Oximetry [ Bilateral Throughout] 03/20/22 03/20/22 03/20/22 08:32 08:37 08:42 Temperature Pulse Rate 80 77 70 Respiratory Rate Blood Pressure Blood Pressure [Left] O2 Sat by Pulse 98 98 98 Oximetry O2 Sat by Pulse Oximetry [ Bilateral Throughout] 03/20/22 03/20/22 03/20/22 08:47 08:52 08:57 Temperature Pulse Rate 77 78 74 Respiratory Rate Blood Pressure Blood Pressure [Left] O2 Sat by Pulse 98 89 98 Oximetry O2 Sat by Pulse Oximetry [ Bilateral Throughout] 03/20/22 03/20/22 03/20/22 09:01 09:02 09:07 Temperature Pulse Rate 87 89 89 Respiratory Rate Blood Pressure Blood Pressure [Left] O2 Sat by Pulse 87 97 99 Oximetry O2 Sat by Pulse Oximetry [ Bilateral Throughout] 03/20/22 03/20/22 03/20/22 09:12 09:17 09:22 Temperature Pulse Rate 77 82 76 Respiratory Rate Blood Pressure Blood Pressure [Left] O2 Sat by Pulse 100 99 100 Oximetry O2 Sat by Pulse Oximetry [ Bilateral Throughout] 03/20/22 03/20/22 03/20/22 09:27 09:32 09:37 Temperature Pulse Rate 79 71 74 Respiratory Rate Blood Pressure Blood Pressure [Left] O2 Sat by Pulse 99 98 98 Oximetry O2 Sat by Pulse Oximetry [ Bilateral Throughout] 03/20/22 03/20/22 03/20/22 09:42 09:47 09:52 Temperature Pulse Rate 93 H 84 96 H Respiratory Rate Blood Pressure Blood Pressure [Left] O2 Sat by Pulse 99 97 99 Oximetry O2 Sat by Pulse Oximetry [ Bilateral Throughout] 03/20/22 03/20/22 03/20/22 09:57 10:02 10:07 Temperature Pulse Rate 86 80 101 H Respiratory Rate Blood Pressure Blood Pressure [Left] O2 Sat by Pulse 99 99 100 Oximetry O2 Sat by Pulse Oximetry [ Bilateral Throughout] 03/20/22 03/20/22 03/20/22 10:12 10:17 10:22 Temperature Pulse Rate 86 83 93 H Respiratory Rate Blood Pressure Blood Pressure [Left] O2 Sat by Pulse 99 98 99 Oximetry O2 Sat by Pulse Oximetry [ Bilateral Throughout] 03/20/22 03/20/22 03/20/22 10:26 10:27 11:37 Temperature 98.6 F Pulse Rate 77 81 71 Respiratory 16 Rate Blood Pressure 129/68 Blood Pressure 130/74 [Left] O2 Sat by Pulse 98 97 Oximetry O2 Sat by Pulse Oximetry [ Bilateral Throughout] 03/20/22 03/20/22 11:43 15:48 Temperature 98.6 F Pulse Rate 72 Respiratory 20 Rate Blood Pressure 133/79 Blood Pressure [Left] O2 Sat by Pulse 97 Oximetry O2 Sat by Pulse 97 Oximetry [ Bilateral Throughout] General appearance: Present: no acute distress - Respiratory Respiratory effort: normal - Cardiovascular Rhythm: regular Extremity abnormal: edema ( +2 bilaterally) - Extremities-detailed Bilateral Foot Edema Type: Pitting Edema Degree: 3+ - Additional findings Additional findings: Uterus firm - Labs CBC & Chem 7: 03/20/22 08:04 03/18/22 18:20 Labs: Abnormal lab results 03/18/22 03/20/22 03/20/22 Range/Units 17:00 02:07 08:04 WBC 12.2 H (4.5-11.0) K/mm3 RBC 3.01 L (3.65-5.03) M/mm3 Hgb 9.6 L (10.1-14.3) gm/dl Hct 29.4 L (30.3-42.9) % MCV 98 H (79-97) fl Magnesium 4.80 H (1.7-2.3) mg/dL Ur Total Protein 24 Hr 4715.00 H (2-200) mg/dL Urine Total Protein 943 H (5-11.8) mg/dL Medications & Allergies - Medications Allergies/Adverse Reactions: Allergies No Known Allergies Allergy (Unverified 02/20/17 18:46) Home Medications: Home Medications Medication Instructions Recorded Confirmed Last Taken Type Ibuprofen [Motrin 600 MG tab] 600 mg PO Q8H PRN #30 tablet 09/26/17 03/20/22 Unknown Rx Multivitamin with Iron 1 each PO DAILY #30 tablet 09/26/17 03/20/22 Unknown Rx [Multivitamins with Iron] Active Medications: Generic Name Dose Route Start Last Admin Trade Name Freq PRN Reason Stop Dose Admin Acetaminophen 650 mg 03/18/22 17:30 03/19/22 02:00 Acetaminophen 325 Mg Tab PO 650 mg Q4H PRN Administration Pain, Mild (1-3) Benzocaine/Menthol 1 spray 03/19/22 11:30 03/19/22 21:31 Benzocaine/Menthol 20/0.5% Top Catherine 56 Gm TP 1 spray PRN PRN Administration Episiotomy Pain Docusate Sodium 100 mg 03/19/22 22:00 Docusate Sodium 100 Mg Cap PO BID LEOPOLDO Magnesium Sulfate 40 gm in 1,000 mls @ 50 mls/hr 03/18/22 18:00 03/20/22 07:41 Magnesium Sulfate 40gm/1000ml IV 2 gm/hr DIRECT LEOPOLDO 50 mls/hr Administration 2 GM/HR Lactated Ringer's 1,000 mls @ 125 mls/hr 03/18/22 18:00 03/20/22 07:41 Lactated Ringers IV 75 mls/hr DIRECT LEOPOLDO Administration Magnesium Hydroxide 30 ml 03/19/22 22:00 Magnesium Hydroxide (Mom) Oral Liqd Udc PO HS PRN Constipation Multi-Ingredient Ointment 1 applic 03/19/22 12:00 03/19/22 21:30 Lanolin/Zinc/Dimethicone (Lansinoh) 7 Gm TP 1 applic PRN PRN Administration Sore Nipples Oxycodone/Acetaminophen 2 tab 03/19/22 12:00 Oxycodone /Acetaminophen 5-325mg Tab PO Q4H PRN Pain, Moderate (4-6) Sodium Chloride 10 ml 03/19/22 11:00 Sodium Chloride 0.9% 10 Ml Flush Syringe IV 03/24/22 10:59 PRN NR Witch Renee/Glycerin 1 each 03/19/22 12:00 03/19/22 21:31 Witch Renee/ Glycerin Pad TP 1 each PRN PRN Administration Hemorrhoid/cleansing/soothing
[2022-03-21] MEDS: DOCUSATE SODIUM 100 MG CAP PO SCH ×2 (05:07→09:30)
--- NOTE | 2022-03-21 10:00 | Progress Note ---
Assessment and Plan A: PPD # 2 - stable S/P Mag P: Labetalol 100 mg po bid BP F/U on Thursday Discharge home today Discharge instructions given Subjective - Subjective Date of service: 03/21/22 Principal diagnosis: S/p , Pre-eclampsia Patient reports: appetite normal : in NICU Objective - Vital Signs Latest vital signs: Vital Signs Temp Pulse Resp BP BP Pulse Ox Pulse Ox 03/21/22 09:34 132/61 03/21/22 09:25 161/85 03/21/22 09:20 142/77 03/21/22 08:06 98.1 F 53 L 20 164/82 97 03/21/22 08:05 98 03/21/22 04:59 98.7 F 57 L 18 145/67 98 03/21/22 00:26 98.4 F 67 16 135/60 97 03/20/22 20:30 98 03/20/22 20:20 99.0 F 89 16 114/63 98 03/20/22 15:48 98.6 F 72 20 133/79 97 03/20/22 11:43 97 03/20/22 11:37 98.6 F 71 16 130/74 97 03/20/22 10:27 81 98 03/20/22 10:26 77 129/68 03/20/22 10:22 93 H 99 03/20/22 10:17 83 98 03/20/22 10:12 86 99 03/20/22 10:07 101 H 100 03/20/22 10:02 80 99 03/20/22 09:57 86 99 03/20/22 09:52 96 H 99 03/20/22 09:47 84 97 Intake and Output 03/20/22 03/21/22 03/21/22 22:59 06:59 14:59 Intake Total 400 360 Output Total 750 Balance -350 360 Intake: Oral 400 Intake, Free Water 360 Output: Urine 750 Void 750 Other: Total, Intake Amount 200 Total, Output Amount 500 # Voids Void 2 - Exam Breasts: Present: deferred Cardiovascular: Present: Regular rate Lungs: Present: Clear to auscultation Abdomen: Present: soft Vulva: both: normal Uterus: Present: fundal height below umbilicus Extremities: Present: normal Deep Tendon Reflex Grade: Normal +2
--- NOTE | 2022-03-21 10:33 | Discharge Summary ---
Providers - Providers Date of Admission: 03/18/22 16:44 Date of discharge: 03/21/22 Attending physician: MICHAEL VILLALBA Primary care physician: MICHAEL VILLALBA Hospitalization Reason for admission: induction of labor Delivery: Laceration: 2nd degree Discharge diagnosis: delivery baby: male Hospital course: Admitted and induced for preeclampsia Condition at discharge: Good Disposition: 01 HOME / SELF CARE / HOMELESS Plan - Provider Discharge Summary Activity: routine, no sex for 6 weeks, no strenuous exercise Diet: routine Instructions: routine Additional instructions: [] Smoking cessation referral if applicable(refer to patient education folder for contact #) [] Refer to [facility]'s [facility] Booklet Call your doctor immediately for: * Fever > 100.5 * Heavy vaginal bleeding ( >1 pad per hour) * Severe persistent headache * Shortness of breath * Reddened, hot, painful area to leg or breast * Drainage or odor from incision. * Keep incision clean and dry at all times and follow doctor's instructions regarding bathing/showering F/U in office on Thursday for BP check - Follow up plan Follow up: MICHAEL VILLALBA MD [Primary Care Provider] - 6 Weeks
[2022-03-21 14:37] VITALS: BP 154/85
== END 2022-03-21 15:15 | disposition home or self-care (01) | DRG 775 ==
LOC: TRG 15:06 → LD 15:06 → APU 15:08 → TRG 16:30 → OBSVTOIN 16:44 → OB 03-20 11:06
PROVIDERS: ADMIT Obstetrics & Gynecology; ATTEND Obstetrics & Gynecology
PROC: 10E0XZZ Delivery of Products of Conception, External Approach (ICD-10-PCS; principal; 2022-03-19)
PROC: 0KQM0ZZ Repair Perineum Muscle, Open Approach (ICD-10-PCS; 2022-03-19)
PROC: 3E033VJ Introduction of Other Hormone into Peripheral Vein, Percutaneous Approach (ICD-10-PCS; 2022-03-19)
PROC: 10907ZC Drainage of Amniotic Fluid, Therapeutic from Products of Conception, Via Natural or Artificial Opening (ICD-10-PCS; 2022-03-19)
PROC: 10H07YZ Insertion of Other Device into Products of Conception, Via Natural or Artificial Opening (ICD-10-PCS; 2022-03-19)
DX: O14.14 Severe pre-eclampsia complicating childbirth (principal); Z37.0 Single live birth; Z3A.35 35 weeks gestation of pregnancy; Z20.822 Contact with and (suspected) exposure to COVID-19; O13.4 Gestational [pregnancy-induced] hypertension without significant proteinuria, complicating childbirth; O77.0 Labor and delivery complicated by meconium in amniotic fluid; O76 Abnormality in fetal heart rate and rhythm complicating labor and delivery; O60.14X0 Preterm labor third trimester with preterm delivery third trimester, not applicable or unspecified; O75.89 Other specified complications of labor and delivery; O70.1 Second degree perineal laceration during delivery
CPT/HCPCS: 36415; 76816; 76819; 80048; 80076; 81001; 82565; 82570; 82575; 83615; 83735; 84156; 84550; 85027; 85610; 85730; 86850; 86900; 86901; 87086; 87116; 88307; G0378; J3490; J0360; J0702; J2405; J2540; J2590; J3010; J3475; J7030; J7120; U0003